=== PATIENT | male | born 1935 | race Caucasian/White ===

== ENCOUNTER → 2018-02-25 | Outpatient (CLI) | payer MEDICARE ==
[~2018-02-25] MED LIST: AMLO-96 PO; ATOR40TA69 PO; BACOUD TP; CEPH500T7 PO; CLIN300C99 PO; FAMO-122 PO; FEBU80TA3 PO; LISI20TA29 PO; MUPI15CR2 TP; PANT40TA65 PO; PNEI IJ; PREG150C33 PO; TRIA15OI20 TP; TRIA5T TOP
[2018-02-25 08:32] LABS: PLATELET COUNT, AUTOMATED 207 K/uL (150-450)
== END ==
LOC: LAB 08:16
PROVIDERS: ATTEND Internal Medicine
DX: I10 Essential (primary) hypertension (principal); K21.9 Gastro-esophageal reflux disease without esophagitis; M1A.29X0 Drug-induced chronic gout, multiple sites, without tophus (tophi); E78.4 Other hyperlipidemia
CPT/HCPCS: 36415; 81001; 82040; 82247; 82310; 82374; 82435; 82465; 82565; 82947; 83718; 84075; 84132; 84155; 84295; 84443; 84450; 84460; 84478; 84520; 84550; 85025

== ENCOUNTER → 2018-10-06 | Outpatient (CLI) | payer MEDICARE ==
[~2018-10-06] MED LIST changes: +ACET125T9 PO; +AMLO-125 PO; -AMLO-96 PO
== END ==
LOC: LAB 11:11
PROVIDERS: ATTEND Surgery
DX: L72.0 Epidermal cyst (principal)
CPT/HCPCS: 88305

== ENCOUNTER → 2018-11-15 | Outpatient (CLI) | payer MEDICARE ==
--- NOTE | 2018-11-15 11:13 | RADIOLOGY IMAGING REPORT ---
FACILITY: [facility] PATIENT NAME: Naif Fall : 1935 MR: [id number] V: [id number] EXAM DATE: ORDERING PHYSICIAN: JEREMY HARTMAN TECHNOLOGIST: Location: [facility] Patient: Naif Fall : 1935 Visit/Account:[id number] Date of Sevice: 11/15/2018 US GROIN Indication: Bilateral inguinal lumps Comparison: None. Findings: Images of the left groin and Valsalva demonstrate small internal hernia, measuring approximately 1.3 cm. Images of the right groin in Valsalva do not demonstrate internal hernia. IMPRESSION: 1. Small left inguinal hernia seen, with fat protruding through the defect. 2. No clear evidence of right inguinal hernia identified. Report Dictated By: Gonzalo Thornton at 11/15/2018 11:01 AM Report E-Signed By: Gonzalo Thornton at 11/15/2018 11:08 AM WSN:ANNA
[2018-11-15 16:29] LABS: PLATELET COUNT, AUTOMATED 208 K/uL (150-450)
== END ==
LOC: US 01:14
PROVIDERS: ATTEND Internal Medicine
DX: K40.30 Unilateral inguinal hernia, with obstruction, without gangrene, not specified as recurrent (principal); E78.5 Hyperlipidemia, unspecified; M10.9 Gout, unspecified; K21.9 Gastro-esophageal reflux disease without esophagitis; I10 Essential (primary) hypertension
CPT/HCPCS: 36415; 81001; 84443; 84550; 85025; G0103; 82040; 82247; 82310; 82374; 82435; 82465; 82565; 82947; 83718; 84075; 84132; 84153; 84155; 84295; 84450; 84460; 84478; 84520

== ENCOUNTER 2018-12-07 03:39 | Day surgery (SDC) | payer MEDICARE ==
[~2018-12-07] VITALS: Ht 172.7 cm; Wt 79.4 kg
[2018-12-07] VITALS (14 sets, daily range): BP systolic 95–138; BP diastolic 57–97
[~2018-12-07 03:39] MED LIST changes: +MULT-1335 PO
[2018-12-07] MEDS ORDERED: BUPIVACAINE/EPI 0.5% 50ML VIAL INFIL ONE (06:29)
[2018-12-07] MEDS ORDERED: NORMOSOL R SOLN(*) 1000 ML BAG 1,000 ML IV PRN (06:30)
[2018-12-07] MEDS ORDERED: MIDAZOLAM 2 MG/2 ML VIAL IVP PRN (06:30)
[2018-12-07] MEDS ORDERED: LIDOCAINE/SOD BICARB 8.4% SYR ID ONE (06:30)
[2018-12-07] MEDS ORDERED: fentaNYL CITR 250 MCG/5 ML AMP ONE (07:13)
[2018-12-07] MEDS ORDERED: LIDOCAINE 2% IV 100 MG/5ML SYR ONE (07:14)
[2018-12-07] MEDS ORDERED: PROPOFOL EMUL(*) 10MG/ML 20 ML 20 ML ONE (07:15)
[2018-12-07] MEDS ORDERED: ceFAZolin(*) 2GM/D5W 50ML 50 ML IVPB ONE (07:15)
[2018-12-07] MEDS ORDERED: DEXAMETHASONE SOD 4 MG/ML VIAL ONE (07:28)
[2018-12-07] MEDS ORDERED: ONDANSETRON 4 MG/2 ML VIAL ONE (07:29)
[2018-12-07] MEDS ORDERED: SUGAMMADEX SOD 200 MG/2 ML SDV ONE (08:09)
[2018-12-07] MEDS ORDERED: fentaNYL CITR 100 MCG/2 ML AMP ONE (08:36)
[2018-12-07] MEDS ORDERED: TRAM-420 PO (09:58)
--- NOTE | 2018-12-07 10:01 | Short(Outpt) Discharge Summary ---
Discharge Summary Reason for Hosp/Final Diag: (1) Inguinal hernia Hospital Course & Plan: 83 yo m presented for bilat ing hernia repair. he tolerated the procedure well. he will be discharged home when criteria met. Discharge Instructions Home Meds Active Scripts Tramadol Hcl (TRAMADOL HCL) 50 Mg Tablet, 50 MG PO Q4H PRN for PAIN, #20 TAB Prov:RIO BUENO 12/07/18 Famotidine (PEPCID AC) 20 Mg Tablet, 20 MG PO QDAY for 90 Days, #30 TAB 4 Refills Prov:JEREMY HARTMAN MD 12/02/18 Lisinopril (LISINOPRIL) 20 Mg Tablet, 1 TAB PO QDAY, #90 TAB 3 Refills Prov:JEREMY HARTMAN MD 02/17/18 Pregabalin (LYRICA) 150 Mg Capsule, 1 CAP PO QDAY, #90 CAPSULE 3 Refills Prov:JEREMY HARTMAN MD 02/17/18 Febuxostat (ULORIC) 80 Mg Tablet, 1 TAB PO QDAY, #90 TAB 3 Refills Prov:JEREMY HARTAMN MD 02/17/18 Atorvastatin Calcium (ATORVASTATIN CALCIUM) 40 Mg Tablet, 1 TAB PO QDAY, #90 TAB 3 Refills Prov:JEREMY HARTMAN MD 02/17/18 Amlodipine Besylate (AMLODIPINE BESYLATE) 5 Mg Tablet, 1 TAB PO QDAY, #90 TAB 3 Refills Prov:JEREMY HARTMAN MD 02/17/18 Triamcinolone Acetonide 0.1% Oint 15 Gm Tube (TRIAMCINOLONE ACETONIDE 0.1% 15 GM TUBE) 15 Gm Oint...g., 30 GM TP BID, #30 GM 1 Refill Prov:JEREMY HARTMAN MD 02/17/17 Reported Medications Multivitamin With Minerals (MULTIPLE VITAMIN) 1 Each Tablet, 1 EACH PO QDAY, TAB 11/26/18 Diet: Regular Activity: No Heavy Lifting Special Instructions: no lifting more than 15 lbs for 3 wks. ok to shower tomorrow. take stool softener while taking pain meds. scrotal support is helpful. follow up with dr. yessenia bueno in 2 wks ([phone]). RIO BUENO Dec 07, 2018 10:01
--- NOTE | 2018-12-07 10:07 | Post Operative Progress Note ---
Post Operative Progress Note Date: Dec 07, 2018 Time: 10:01 Surgeon: dr. kenneth bueno #[id number] Clinical Programmer: none Anesthesia: gen, local dr. green Pre-Op Diagnosis: bilat ing hernia Post-Op Diagnosis: same Findings: bilat ing hernia Procedure(s): bilat lap ing hernia repair with mesh Specimen Removed:(May be N/A): n/a Complications: none Fluids: iv crystalliod Estimated Blood Loss: minimal Date OP Note Dictated: Dec 07, 2018 Time OP Note Dictated: 10:02 RIO BUENO Dec 07, 2018 10:07
--- NOTE | 2018-12-07 11:03 | OPERATIVE REPORT 1 ---
EVENT DATE: December 07, 2018 SURGEON: Rc Forte MD ANESTHESIOLOGIST: Garth Huff MD ANESTHESIA: General and local. MARKETING TRAINEE: None. PREOPERATIVE DIAGNOSIS Bilateral inguinal hernia. POSTOPERATIVE DIAGNOSIS Bilateral inguinal hernia. PROCEDURE PERFORMED Bilateral laparoscopic inguinal hernia repair with mesh. FLUIDS IV crystalloid. ESTIMATED BLOOD LOSS Minimal. SPECIMENS None. COMPLICATIONS None. INDICATIONS This is an 83-year old male with a right inguinal hernia that is bothersome to him. On physical exam, patient has a moderate sized right inguinal hernia and a small left inguinal hernia. He would like both of them repaired. Risks and benefits of the procedure were explained and consent was signed. DESCRIPTION OF PROCEDURE The patient was taken to the operating room and placed in the supine position. General anesthesia was administered per the Anesthesia team. Patient was prepped and draped in normal sterile fashion. Local analgesia was injected into the dermis above the umbilicus and a 5 mm vertical incision was made in the umbilicus. The umbilical stump was grasped and elevated. Veress needle was inserted. Pneumoperitoneum was achieved. Veress needle was removed. The 5 mm port was advanced. After injecting local analgesia and under direct visit, a 5 mm right-sided and a 5 mm left-sided port were placed. The supraumbilical incision was extended slightly and a 12 mm port was placed. I inspected the abdomen. There was no injury upon entry. Patient had a medium sized indirect hernia on the right and a small direct hernia on the left with a tiny indirect hernia on the left. Peritoneal flap was created with LigaSure on the right. This was taken down to the level of Julito's ligament. The hernia sac was carefully reduced. Care was taken to protect the spermatic cord structures. The peritoneum was taken down below the level of the ileopubic tract. The same procedure was performed on the left. Peritoneal flap was created with LigaSure and this was taken down to the level of Julito's ligament. The direct hernia and the very small indirect hernia were reduced. The peritoneal flap was taken down below the level of the ileopubic tract. A 15 x 10 cm ProGrip left-sided mesh was trimmed slightly and made to lie flat over the myopectineal orifice on the left. A 15 x 10 cm ProGrip mesh was placed on the right and it was made to lie flat. Hemostasis had been assured. Both peritoneal flaps were approximated with running absorbable V-Loc sutures with the Endo Stitch device. An 0 Vicryl stitch with the suture passer device was used to close the fascia of the supraumbilical port site. Tap locks were passed on each side. The right-sided port was removed under direct vision. Hemostasis was assured. Pneumoperitoneum was released. Final port was removed. All skin incisions were closed with 4-0 Monocryl subcuticular stitches. More local analgesia was injected. Appropriate dressings were applied. The patient tolerated the procedure well and there were no complications. ZOFIA
[2018-12-07] MEDS ORDERED: traMADol 50 MG TAB PO PRN (11:20)
--- NOTE | 2018-12-07 12:05 | NUR ---
1205- SBAR REPORT FROM Dacia MURILLO RN PT REPORTS FEELING CALM AND COMFORTABLE, PT RATES PAIN AT 3/10 UPON MOVEMENT, PT IS ON 1LPM VIA NC, NOTED A SAT DROP TO 86% BUT BACK UP TO 93% ON 1LPM WITHIN IN 15 SECONDS WILL CONTINUE TO MONITOR.
--- NOTE | 2018-12-07 12:20 | NUR ---
1220- RX GIVEN TO TO FILL
--- NOTE | 2018-12-07 12:34 | NUR ---
1234- PT PLACED ON 2LPM VIA NC WHILE RESTING, SEE VS CHART
--- NOTE | 2018-12-07 14:30 | NUR ---
1300 SBAR REPORT WAS RECEIVED FROM OTTONIEL BERG RN. PATIENT IS RESTING AT THIS TIME 1330 PATIENT CONTINUES TO REST 1350 PATIENT WAS MOVED TO ROOM AIR AT THIS TIME. HE WAS INSTRUCTED TO COUGH AND DEEP BREATHE. HE DEMONSTRATED THIS WELL. 1357 PATIENT BEGAN DOING ORTHOSTATICS. AT THIS TIME. HIS INCISIONS REMAIN DRY AND INTACT AT THIS TIME. BOWEL SOUNDS ARE HYPOACTIVE. LUNGS ARE CLEAR. HE STATES HIS PAIN IS 3/10.
--- NOTE | 2018-12-07 15:45 | NUR ---
1420 PATIENTS O2 WAS 83% ON ROOM AIR BACK ON ARRIVAL 1421 PATIENT WAS MOVED TO 2 LITERS NASAL CANNULA AND HIS O2 AARON QUICKLY 1429 CARDIOPULMONARY WAS IN TO TEACH PATIENT ABOUT THE AEROBIKA. HE DEMONSTRATED UNDERSTANDING 1435 PATIENT WAS RETURNED TO HIS BED TO REST 1515 PATIENT BEGAN GETTING DRESSED WITHOUT DIFFICULTIES 1530 [facility] ARRIVED TO TEACH PATIENT ABOUT O2. IV WAS DC'D BY PEPPER MURILLO RN 1545 PATIENT WAS TAKEN OUT BY Dacia MURILLO RN AND ACCOMPANIED BY HIS . LUNGS ARE CLEAR. PATIENT WAS SENT HOME ON 2 LITERS NASAL CANNULA. BOWEL SOUNDS ARE HYPOACTIVE. INCISIONS REMAIN DRY AND INTACT. PATIENT DENIES ANY DIZZINESS OR LIGHTHEADED. HE DENIES ANY NAUSEA AND STATES HE HAS MILD DISCOMFORT ON MOVEMENT. SEE DISCHARGE ASSESSMENT.
--- NOTE | 2018-12-07 16:33 | NUR ---
1357 PATIENT DENIES ANY DIZZINESS OR LIGHTHEADEDNESS 1401 PATIENT BEGAN STANDING. HE WAS STABLE ON HIS FEET 1405 PATIENT WAS ABLE TO WALK TO THE BATHROOM 1407 PATIENT STATED IT WAS SLIGHTLY DIFFICULT TO START URINATING BUT HE WAS ABLE TO VOID. HIS PEE IS LIGHT YELLOW AND CLEAR. 1415 BEGAN WALKING WITH PATIENT AROUND THE PERIOP AREA.
== END 2018-12-07 10:30 | disposition home or self-care (01) ==
LOC: OR 03:39
PROVIDERS: ATTEND Surgery
DX: K40.20 Bilateral inguinal hernia, without obstruction or gangrene, not specified as recurrent (principal); I10 Essential (primary) hypertension; E78.5 Hyperlipidemia, unspecified
CPT/HCPCS: 49650; 94667; A9270; C1781; J1100; J2001; J2405; J2704; J3010; J0690